=== PATIENT | female | born 1945 | race Caucasian/White ===

== ENCOUNTER 2020-09-04 11:56 | Emergency (ER) | payer OTHER ==
[~2020-09-04] VITALS: Ht 162.6 cm; Wt 99.8 kg
[2020-09-04 12:32] VITALS: BP 127/62
[2020-09-04] MEDS ORDERED: ACETAMINOPHEN/CODEINE#3 (300/30mg) TAB PO ONE (14:45)
[2020-09-04] MEDS ORDERED: KETOROLAC TROMETH 30 MG/ML 1ML VIAL IM ONE (14:45)
== END 2020-09-04 15:12 | disposition home or self-care (01) ==
LOC: ER 11:56
DX: M48.061 Spinal stenosis, lumbar region without neurogenic claudication (principal); M54.16 Radiculopathy, lumbar region; E11.9 Type 2 diabetes mellitus without complications; Z88.6 Allergy status to analgesic agent
CPT/HCPCS: 72131; 82962; 96372; 99284; J1885

== ENCOUNTER 2020-09-06 04:33 | Emergency (ER) | payer OTHER ==
[~2020-09-06] VITALS: Ht 162.6 cm; Wt 99.8 kg
[2020-09-06 04:52] VITALS: BP 172/83
[2020-09-06] MEDS ORDERED: ONDANSETRON ODT 4 MG TAB PO ONE (05:15)
[2020-09-06] MEDS ORDERED: GABAPENTIN 100 MG CAP PO ONE (05:15)
[2020-09-06] MEDS ORDERED: HYDROmorphone HCL 2 MG/ML VL IM ONE (05:15)
== END 2020-09-06 05:10 | disposition home or self-care (01) ==
LOC: ER 04:33
DX: M48.061 Spinal stenosis, lumbar region without neurogenic claudication (principal); M79.661 Pain in right lower leg; E11.9 Type 2 diabetes mellitus without complications; Z88.6 Allergy status to analgesic agent
CPT/HCPCS: 96372; 99283; J1170; Q0162

== ENCOUNTER 2020-09-09 09:35 | Emergency (ER) | payer OTHER ==
[~2020-09-09] VITALS: Ht 162.6 cm; Wt 99.8 kg
[2020-09-09 09:46] VITALS: BP 125/63
[2020-09-09] MEDS ORDERED: ONDANSETRON HCL 4 MG/2 ML VIAL IM ONE (10:15)
[2020-09-09] MEDS ORDERED: HYDROmorphone HCL 2 MG/ML VL IM ONE (10:15)
== END 2020-09-09 10:49 | disposition home or self-care (01) ==
LOC: ER 09:35
DX: M48.061 Spinal stenosis, lumbar region without neurogenic claudication (principal); E11.9 Type 2 diabetes mellitus without complications; I10 Essential (primary) hypertension
CPT/HCPCS: 96372; 99284; J1170; J2405

== ENCOUNTER 2021-06-20 17:35 | Inpatient (IN) | payer OTHER ==
[~2021-06-20] VITALS: Ht 162.6 cm; Wt 106.7 kg
[2021-06-20] MEDS ORDERED: ACETAMINOPHEN 500 MG TAB PO ONE (18:00)
[2021-06-20] MEDS ORDERED: ONDANSETRON HCL 4 MG/2 ML VIAL IV ONE (20:00)
[2021-06-20] MEDS ORDERED: MORPHINE SULFATE 4 MG/ML SYR/VIAL IV ONE (20:00)
[2021-06-20 20:23] LABS: Basophils # (auto) 0 10 ^3/uL (0-0.2); Basophils % (auto) 0.3 % (0.0-2.0); Eosinophils # (auto) 0 10 ^3/uL (0-0.8); Hematocrit 40.1 % (36.0-46.0); Hemoglobin 13.3 g/dL (12.2-16.2); Lymphocytes % (auto) 20.6 % (10.0-50.0); Mean Corpuscular Hemoglobin 30.6 pg (28.0-32.0); Mean Corpuscular Hgb Conc. 33.1 g/dL (32.0-36.0); Mean Corpuscular Volume 92.3 fL (80.0-100.0); Monocytes # (auto) 1.2 10 ^3/uL (0-1.3); Monocytes % (auto) 8.5 % (0.0-12.0); Neutrophils # (auto) 10.4 10 ^3/uL (1.6-8.6); Neutrophils % (auto) 70.6 % (37.0-80.0); Red Blood Cells 4.35 10^6/uL (4.0-5.20); Red Cell Distribution Width 13.8 % (11.8-14.3); White Blood Cell 14.7 10^3/uL (4.4-10.8)
[2021-06-20 20:38] LABS: Albumin 2.9 g/dL (3.4-5.0); Calcium 9.3 mg/dL (8.5-10.1)
[2021-06-20 20:41] LABS: BUN/Creatinine Ratio 18.1; Bilirubin, Total 0.7 mg/dL (0.2-1.0); Total Protein 7.2 g/dL (6.4-8.2)
[2021-06-20 20:46] LABS: Potassium 2.8 mmol/L (3.5-5.1)
[2021-06-20] MEDS ORDERED: POTASSIUM CHL 20MEQ/100ML 100 ML IV ONE (22:15)
[2021-06-21 01:54] LABS: Urine Bacteria FEW /hpf (None Seen); Urine Blood 1+ /uL (Negative); Urine Hyaline Cast MOD /lpf (0 - 2); Urine Mucus FEW (None Seen); Urine Specific Gravity 1.024 (1.001-1.035); Urine WBC 10 /hpf (0 - 5)
[2021-06-21] MEDS ORDERED: DEXTROSE (50%) 50ML SYRG IV PRN (02:30)
[2021-06-21] MEDS ORDERED: ONDANSETRON HCL 4 MG/2 ML VIAL IV PRN (02:30)
[2021-06-21] MEDS ORDERED: MORPHINE SULFATE 4 MG/ML SYR/VIAL IV PRN (02:30)
[2021-06-21] MEDS ORDERED: TEMAZEPAM 15 MG CAP PO PRN (02:30)
[2021-06-21] MEDS ORDERED: ACETAMINOPHEN 325 MG TAB PO PRN (02:30)
[2021-06-21 03:15] LABS: INR 2.95 (0.9-1.15); Partial Thromboplastin Time 45.5 sec (23.6-33.0)
[2021-06-21] MEDS: ACCU-CHEK COMFORT CURVE STRIP VI SCH ×3 (06:52→18:41)
[2021-06-21] MEDS: InsuLIN REG 1unit/0.01ml Soln (100units/ml) SC SCH ×3 (06:55→18:42)
[2021-06-21] MEDS: cefTRIAXone 1GM/50ML D5W 50 ML IV SCH ×2 (08:46→09:45)
[2021-06-21] MEDS: LOSARTAN POTASSIUM 50 MG TAB PO SCH (09:45)
[2021-06-21] MEDS: HCTZ 25 MG TAB PO SCH (09:45)
[2021-06-21] MEDS: NIFEdipine ER 30 MG TAB PO SCH (09:46)
[2021-06-21] MEDS: PANTOPRAZOLE 40 MG TAB PO SCH (09:46)
[2021-06-21] MEDS ORDERED: LORazepam 2MG/ML-1ML VIAL IV ONE (11:30)
[2021-06-21 11:58] LABS: Basophils # (auto) 0 10 ^3/uL (0-0.2); Basophils % (auto) 0.4 % (0.0-2.0); Eosinophils # (auto) 0 10 ^3/uL (0-0.8); Eosinophils % (auto) 0.4 % (0.0-7.0); Hematocrit 41.1 % (36.0-46.0); Hemoglobin 13.6 g/dL (12.2-16.2); Lymphocytes # (auto) 2.8 10 ^3/uL (0.4-5.4); Mean Corpuscular Hemoglobin 30.8 pg (28.0-32.0); Mean Corpuscular Hgb Conc. 33.2 g/dL (32.0-36.0); Mean Corpuscular Volume 92.7 fL (80.0-100.0); Monocytes # (auto) 0.9 10 ^3/uL (0-1.3); Monocytes % (auto) 8.5 % (0.0-12.0); Neutrophils # (auto) 7.1 10 ^3/uL (1.6-8.6); Neutrophils % (auto) 64.7 % (37.0-80.0); Red Blood Cells 4.43 10^6/uL (4.0-5.20); White Blood Cell 10.9 10^3/uL (4.4-10.8)
[2021-06-21] MEDS ORDERED: GOLYTELY 4L KIT PO ONE (12:15)
[2021-06-21 12:19] LABS: INR 2.56 (0.9-1.15)
[2021-06-21 13:47] LABS: Calcium 9.3 mg/dL (8.5-10.1); Magnesium 2.1 mg/dL (1.6-2.6)
[2021-06-21 13:49] LABS: BUN/Creatinine Ratio 16.3
[2021-06-21] MEDS ORDERED: NIFE1TAB30 PO (15:25)
[2021-06-21] MEDS ORDERED: SIMV-13 PO (15:25)
[2021-06-21] MEDS ORDERED: POTA-264 PO (15:25)
[2021-06-21] MEDS ORDERED: ALPR0.255 PO (15:25)
[2021-06-21] MEDS ORDERED: METO-159 PO (15:25)
[2021-06-21] MEDS ORDERED: INSUINJ37 SC (15:25)
[2021-06-21] MEDS ORDERED: WARF3TAB22 PO (15:25)
[2021-06-21] MEDS ORDERED: LOSA50TA27 PO (15:25)
[2021-06-21] MEDS ORDERED: PHYTONADIONE (VIT K)10 MG/ML 1ML VIAL SUBCUT ONE (16:15)
[2021-06-21] MEDS ORDERED: phytonadione 10 MG in SODIUM CHL 0.9% 50 ML IV ONE (17:00)
[2021-06-21] MEDS ORDERED: WARFARIN SODIUM 2.5 MG TAB PO ONE (17:00)
[2021-06-21 20:05] VITALS: BP 143/73
[2021-06-21] MEDS: ATORVASTATIN 20 MG TAB PO SCH (21:27)
[2021-06-22] MEDS: ACCU-CHEK COMFORT CURVE STRIP VI SCH ×5 (01:23→23:20)
[2021-06-22] MEDS: InsuLIN REG 1unit/0.01ml Soln (100units/ml) SC SCH ×5 (01:23→23:20)
[2021-06-22] MEDS: HYDROmorphone HCL 2 MG/ML VL IV PRN ×3 (01:34→18:47)
[2021-06-22] MEDS ORDERED: WARF4TAB33 PO (01:58)
[2021-06-22 05:00] VITALS: BP 141/70
[2021-06-22] MEDS ORDERED: PHYTONADIONE (VIT K)10 MG/ML 1ML VIAL SUBCUT ONE (05:00)
[2021-06-22] MEDS: MORPHINE SULFATE INJECTION 2 MG/ML SYRG IV PRN ×2 (05:23→12:36)
[2021-06-22 05:34] LABS: Basophils # (auto) 0 10 ^3/uL (0-0.2); Basophils % (auto) 0.3 % (0.0-2.0); Eosinophils # (auto) 0 10 ^3/uL (0-0.8); Eosinophils % (auto) 0.1 % (0.0-7.0); Hemoglobin 14.1 g/dL (12.2-16.2); Lymphocytes # (auto) 2.7 10 ^3/uL (0.4-5.4); Lymphocytes % (auto) 25.5 % (10.0-50.0); Mean Corpuscular Hgb Conc. 33.6 g/dL (32.0-36.0); Mean Corpuscular Volume 92.3 fL (80.0-100.0); Monocytes # (auto) 1.1 10 ^3/uL (0-1.3); Monocytes % (auto) 10.4 % (0.0-12.0); Neutrophils # (auto) 6.7 10 ^3/uL (1.6-8.6); Neutrophils % (auto) 63.7 % (37.0-80.0); Nucleated Red Blood Cells % 0.1 %; Red Blood Cells 4.55 10^6/uL (4.0-5.20); Red Cell Distribution Width 13.9 % (11.8-14.3); White Blood Cell 10.5 10^3/uL (4.4-10.8)
[2021-06-22] MEDS ORDERED: MAGNESIUM CITRATE SOLUTION 300 ML BTL PO ONE (06:00)
[2021-06-22] MEDS ORDERED: GOLYTELY 4L KIT PO ONE (06:00)
[2021-06-22 06:22] LABS: Calcium 9.3 mg/dL (8.5-10.1)
[2021-06-22 06:25] LABS: Albumin 3.2 g/dL (3.4-5.0); BUN/Creatinine Ratio 17.3
[2021-06-22 06:30] LABS: Bilirubin, Total 0.7 mg/dL (0.2-1.0)
[2021-06-22] MEDS ORDERED: phytonadione 10 MG in SODIUM CHL 0.9% 50 ML IV ONE (07:30)
[2021-06-22 09:00] VITALS: BP 125/67
[2021-06-22] MEDS ORDERED: PHYTONADIONE(VitK) ORAL Susp 10mg/10ml(1mg/ml) PO ONE (09:45)
[2021-06-22] MEDS: LOSARTAN POTASSIUM 50 MG TAB PO SCH (10:15)
[2021-06-22] MEDS: PANTOPRAZOLE 40 MG TAB PO SCH (10:16)
[2021-06-22] MEDS: NIFEdipine ER 30 MG TAB PO SCH (10:16)
[2021-06-22] MEDS: HCTZ 25 MG TAB PO SCH (10:16)
[2021-06-22 10:30] LABS: INR 1.22 (0.9-1.15)
[2021-06-22] MEDS ORDERED: SODIUM CHLORIDE LOCK 10 ML ONE (10:50)
[2021-06-22] MEDS: cefTRIAXone 1GM/50ML D5W 50 ML IV SCH (10:58)
[2021-06-22] MEDS: POTASSIUM CHL 20MEQ/100ML 100 ML IV SCH ×2 (10:59→15:13)
[2021-06-22 13:00] VITALS: BP 139/63
[2021-06-22] MEDS: MIDAZOLAM HCL 5 MG/ML-1ML VIAL ONE ×3 (17:08→17:14)
[2021-06-22] MEDS: fentaNYL CITRATE 100 MCG/2 ML VL ONE ×3 (17:08→17:14)
[2021-06-22] MEDS: diphenhdrAMINE HCL 50 MG/1 ML VL ONE ×2 (17:08→17:12)
[2021-06-22 18:38] VITALS: BP 137/65
[2021-06-22] MEDS: ATORVASTATIN 20 MG TAB PO SCH (21:36)
[2021-06-22 22:00] VITALS: BP 132/50
[2021-06-23] MEDS: HYDROmorphone HCL 2 MG/ML VL IV PRN ×3 (01:00→16:23)
[2021-06-23] MEDS: MORPHINE SULFATE INJECTION 2 MG/ML SYRG IV PRN ×2 (04:54→20:43)
[2021-06-23 05:00] VITALS: BP 129/56
[2021-06-23] MEDS: InsuLIN REG 1unit/0.01ml Soln (100units/ml) SC SCH ×3 (05:59→18:16)
[2021-06-23] MEDS: ACCU-CHEK COMFORT CURVE STRIP VI SCH ×3 (06:01→17:23)
[2021-06-23 06:56] LABS: BUN/Creatinine Ratio 14.3; Calcium 8.9 mg/dL (8.5-10.1)
[2021-06-23] MEDS: cefTRIAXone 1GM/50ML D5W 50 ML IV SCH (08:59)
[2021-06-23] MEDS: LOSARTAN POTASSIUM 50 MG TAB PO SCH (09:04)
[2021-06-23] MEDS: HCTZ 25 MG TAB PO SCH (09:05)
[2021-06-23] MEDS: NIFEdipine ER 30 MG TAB PO SCH (09:06)
[2021-06-23 09:28] VITALS: BP 144/71
[2021-06-23] MEDS ORDERED: ENOXAPARIN SOD 100 MG/1 ML SYRINGE SC SCH (10:00)
[2021-06-23 10:48] LABS: Potassium 2.7 mmol/L (3.5-5.1)
[2021-06-23] MEDS ORDERED: ENO100SY SC (11:07)
[2021-06-23] MEDS ORDERED: CEPH500T PO (11:07)
[2021-06-23 12:35] VITALS: BP 150/67
[2021-06-23 16:53] VITALS: BP 160/60
[2021-06-23] MEDS: POTASSIUM EFFERVESENT TAB 25 MEQ PO SCH (17:30)
[2021-06-23 20:31] LABS: BUN/Creatinine Ratio 10.2; Calcium 8.8 mg/dL (8.5-10.1); Potassium 3.2 mmol/L (3.5-5.1)
[2021-06-23 21:05] VITALS: BP 161/71
[2021-06-23 22:00] VITALS: BP 161/71
[2021-06-23] MEDS ORDERED: ENOXAPARIN SOD 120 MG/0.8 ML SYRINGE SC SCH (22:00)
[2021-06-23] MEDS ORDERED: LOPERAMIDE HCL 2 MG CAP PO ONE (22:00)
[2021-06-23] MEDS: ATORVASTATIN 20 MG TAB PO SCH (22:29)
== END 2021-06-23 23:16 | disposition home or self-care (01) | DRG 375 ==
LOC: ER 17:35 → OVERFLOW 06-21 02:27 → WEST WING 06-21 20:02
PROVIDERS: ADMIT Nurse Practitioner; ATTEND Internal Medicine
PROC: 0DBL8ZZ Excision of Transverse Colon, Via Natural or Artificial Opening Endoscopic (ICD-10-PCS; 2021-06-22)
PROC: 0DBL8ZX Excision of Transverse Colon, Via Natural or Artificial Opening Endoscopic, Diagnostic (ICD-10-PCS; principal; 2021-06-22 17:04)
DX: C18.4 Malignant neoplasm of transverse colon (principal); D68.9 Coagulation defect, unspecified; N39.0 Urinary tract infection, site not specified; Z68.41 Body mass index [BMI] 40.0-44.9, adult; Z20.822 Contact with and (suspected) exposure to COVID-19; K63.89 Other specified diseases of intestine; E11.9 Type 2 diabetes mellitus without complications; E87.6 Hypokalemia; I10 Essential (primary) hypertension; K58.0 Irritable bowel syndrome with diarrhea; E66.9 Obesity, unspecified; E78.5 Hyperlipidemia, unspecified; N20.0 Calculus of kidney; K64.8 Other hemorrhoids; K63.5 Polyp of colon; Z79.01 Long term (current) use of anticoagulants; Z83.3 Family history of diabetes mellitus; Z86.711 Personal history of pulmonary embolism; Z90.49 Acquired absence of other specified parts of digestive tract; Z90.710 Acquired absence of both cervix and uterus; Z88.5 Allergy status to narcotic agent; Z88.8 Allergy status to other drugs, medicaments and biological substances; Z88.2 Allergy status to sulfonamides; Z79.84 Long term (current) use of oral hypoglycemic drugs
CPT/HCPCS: 36415; 45380; 45385; 71045; 74176; 74181; 80048; 80053; 81001; 82962; 83605; 83690; 83735; 85025; 85610; 85730; 87040; 87081; 87426; 93005; 96365; 96366; 96367; 96372; G0378; J0696; J1815; J2250; J3430; J3480

== ENCOUNTER 2021-07-14 09:50 | Emergency (ER) | payer OTHER ==
[~2021-07-14] VITALS: Ht 162.6 cm; Wt 100.7 kg
[~2021-07-14 09:50] MED LIST: ALPR0.255 PO; CEPH500T PO; ENO100SY SC; INSUINJ37 SC; LOSA50TA27 PO; METO-159 PO; NIFE1TAB30 PO; POTA-264 PO; SIMV-13 PO; WARF3TAB22 PO; WARF4TAB33 PO
[2021-07-14 10:32] LABS: Basophils # (auto) 0.1 10 ^3/uL (0-0.2); Basophils % (auto) 0.9 % (0.0-2.0); Eosinophils # (auto) 0.1 10 ^3/uL (0-0.8); Eosinophils % (auto) 0.9 % (0.0-7.0); Hematocrit 45.1 % (36.0-46.0); Hemoglobin 14.9 g/dL (12.2-16.2); Lymphocytes # (auto) 2.3 10 ^3/uL (0.4-5.4); Lymphocytes % (auto) 36.6 % (10.0-50.0); Mean Corpuscular Hemoglobin 30.8 pg (28.0-32.0); Mean Corpuscular Hgb Conc. 33.1 g/dL (32.0-36.0); Mean Corpuscular Volume 92.8 fL (80.0-100.0); Monocytes # (auto) 0.8 10 ^3/uL (0-1.3); Monocytes % (auto) 12.5 % (0.0-12.0); Neutrophils # (auto) 3.1 10 ^3/uL (1.6-8.6); Neutrophils % (auto) 49.1 % (37.0-80.0); Nucleated Red Blood Cells % 0.1 %; Red Blood Cells 4.85 10^6/uL (4.0-5.20); Red Cell Distribution Width 14.5 % (11.8-14.3); White Blood Cell 6.2 10^3/uL (4.4-10.8)
[2021-07-14 10:55] LABS: Calcium 10.1 mg/dL (8.5-10.1); Chloride 100 mmol/L (98-107); Potassium 3.7 mmol/L (3.5-5.1); Sodium 136 mmol/L (136-145)
[2021-07-14 11:03] LABS: Alanine Aminotransferase 43 U/L (13-56); Albumin 3.7 g/dL (3.4-5.0); Alkaline Phosphatase 73 U/L (45-117); Anion Gap 5 (5-15); Aspartate Aminotransferase 29 U/L (15-37); BUN/Creatinine Ratio 15.3; Bilirubin, Total 0.6 mg/dL (0.2-1.0); Blood Urea Nitrogen 15 mg/dL (7-18); Carbon Dioxide 31 mmol/L (21-32); GFR African American 71 mL/min; GFR Non-African American 58 mL/min; Glucose 219 mg/dL (74-106); Total Protein 8.2 g/dL (6.4-8.2)
[2021-07-14 11:45] LABS: INR 1.72 (0.9-1.15); Partial Thromboplastin Time 28.4 sec (23.6-33.0)
[2021-07-14 15:37] LABS: Urine Bacteria FEW /hpf (None Seen); Urine Blood Negative /uL (Negative); Urine Hyaline Cast FEW /lpf (0 - 2); Urine Mucus FEW (None Seen); Urine Specific Gravity 1.018 (1.001-1.035); Urine WBC 4 /hpf (0 - 5)
[2021-07-14 19:10] VITALS: BP 120/83
== END 2021-07-14 19:16 | disposition home or self-care (01) ==
LOC: ER 09:50
DX: R10.9 Unspecified abdominal pain (principal); R11.2 Nausea with vomiting, unspecified; R19.7 Diarrhea, unspecified; I10 Essential (primary) hypertension; E11.9 Type 2 diabetes mellitus without complications; Z90.49 Acquired absence of other specified parts of digestive tract; Z90.710 Acquired absence of both cervix and uterus; Z79.4 Long term (current) use of insulin; Z79.01 Long term (current) use of anticoagulants; Z79.899 Other long term (current) drug therapy; Z88.2 Allergy status to sulfonamides; Z88.8 Allergy status to other drugs, medicaments and biological substances
CPT/HCPCS: 36415; 74176; 80053; 81001; 83690; 84484; 85025; 85610; 85730; 93005

== ENCOUNTER 2023-03-11 10:56 | Inpatient (IN) | payer OTHER ==
[~2023-03-11] VITALS: Ht 162.6 cm; Wt 105.3 kg
[~2023-03-11 10:56] MED LIST changes: +CIPR500T4 PO; -SIMV-13 PO; +SIMV40TA18 PO; +WARF-111 PO; +WARF-112 PO; -WARF3TAB22 PO; -WARF4TAB33 PO
[2023-03-11] MEDS ORDERED: SODIUM CHLORIDE 0.9% 1,000 ML IV ONE (12:15)
[2023-03-11 12:58] LABS: Basophils # (auto) 0 10 ^3/uL (0-0.2); Basophils % (auto) 0.7 % (0.0-2.0); Eosinophils # (auto) 0 10 ^3/uL (0-0.8); Eosinophils % (auto) 0.7 % (0.0-7.0); Hematocrit 40.5 % (36.0-46.0); Hemoglobin 13.6 g/dL (12.2-16.2); Lymphocytes # (auto) 2.4 10 ^3/uL (0.4-5.4); Lymphocytes % (auto) 39.3 % (10.0-50.0); Mean Corpuscular Hemoglobin 31.9 pg (28.0-32.0); Mean Corpuscular Hgb Conc. 33.7 g/dL (32.0-36.0); Mean Corpuscular Volume 94.8 fL (80.0-100.0); Monocytes # (auto) 0.7 10 ^3/uL (0-1.3); Monocytes % (auto) 11.2 % (0.0-12.0); Neutrophils # (auto) 2.9 10 ^3/uL (1.6-8.6); Neutrophils % (auto) 48.1 % (37.0-80.0); Nucleated Red Blood Cells % 0.2 %; Red Blood Cells 4.27 10^6/uL (4.0-5.20); Red Cell Distribution Width 13.8 % (11.8-14.3); White Blood Cell 6.1 10^3/uL (4.4-10.8)
[2023-03-11 13:09] LABS: Albumin 3.4 g/dL (3.4-5.0); Calcium 8.9 mg/dL (8.5-10.1); Potassium 3.8 mmol/L (3.5-5.1)
[2023-03-11 13:14] LABS: BUN/Creatinine Ratio 17.4 (10.0-20.0); Bilirubin, Total 0.4 mg/dL (0.2-1.0); Total Protein 6.8 g/dL (6.4-8.2)
[2023-03-11 13:23] LABS: INR 2.62 (0.9-1.15)
[2023-03-11 14:10] LABS: Urine Bacteria FEW /hpf (None Seen); Urine Blood Negative /uL (Negative); Urine Mucus FEW (None Seen); Urine Specific Gravity 1.012 (1.001-1.035); Urine WBC 29 /hpf (0 - 5)
[2023-03-11] MEDS ORDERED: NITROGLYCERIN 0.4 MG SL TAB SL PRN (16:30)
[2023-03-11] MEDS ORDERED: DEXTROSE (50%) 50ML SYRG IV PRN (16:30)
[2023-03-11] MEDS ORDERED: DOCUSATE SOD 100 MG CAP PO PRN (16:30)
[2023-03-11] MEDS ORDERED: ONDANSETRON HCL 4 MG/2 ML VIAL IV PRN (16:30)
[2023-03-11] MEDS ORDERED: MORPHINE SULFATE INJ 2 MG/ml SYRG IV PRN ×2 (16:30)
[2023-03-11] MEDS: ACCU-CHEK COMFORT CURVE STRIP VI SCH ×2 (17:00→22:59)
[2023-03-11] MEDS: InsuLIN REG 1unit/0.01ml Soln (100units/ml) SC SCH (18:03)
[2023-03-11] MEDS ORDERED: InsuLIN REG 1unit/0.01ml Soln (100units/ml) SC SCH (22:00)
[2023-03-11] MEDS: ACETAMINOPHEN 325 MG TAB PO PRN (23:03)
[2023-03-11] MEDS ORDERED: LOPERAMIDE HCL 2 MG CAP/TAB PO ONE (23:15)
[2023-03-12] MEDS: ACCU-CHEK COMFORT CURVE STRIP VI SCH ×4 (06:30→21:37)
[2023-03-12] MEDS: ACETAMINOPHEN 325 MG TAB PO PRN ×2 (06:34→23:04)
[2023-03-12] MEDS: InsuLIN REG 1unit/0.01ml Soln (100units/ml) SC SCH ×3 (06:39→18:16)
[2023-03-12] MEDS: LOPERAMIDE HCL 2 MG CAP/TAB PO PRN ×2 (10:54→15:20)
[2023-03-12] MEDS ORDERED: InsuLIN REG 1unit/0.01ml Soln (100units/ml) ONE (12:11)
[2023-03-12 12:17] LABS: INR 1.96 (0.9-1.15)
[2023-03-12 13:23] LABS: Cholesterol 149 mg/dL (< 200)
[2023-03-12 13:26] LABS: HDL Cholesterol 51 mg/dL (40-59); LDL Cholesterol 69 mg/dL (< 100); Triglycerides 160 mg/dL (< 150)
[2023-03-12] MEDS: hydrALAZINE HCL 20 MG/ML VL IV PRN ×2 (14:06→23:08)
[2023-03-12 15:20] VITALS: BP 167/65
[2023-03-12 17:00] VITALS: BP 167/65
[2023-03-12] MEDS ORDERED: WARFARIN SODIUM 1 MG TAB PO ONE (17:00)
[2023-03-12] MEDS ORDERED: WARFARIN SODIUM 3 MG PO SCH (18:00)
[2023-03-12] MEDS ORDERED: MET50T PO (18:36)
[2023-03-12] MEDS ORDERED: MORPHINE SULFATE INJ 2 MG/ml SYRG IV PRN (19:15)
[2023-03-12] MEDS: ALPRAZolam 0.25 MG TAB PO SCH (21:31)
[2023-03-12] MEDS: NIFEdipine ER 30 MG TAB PO SCH (21:33)
[2023-03-12 22:00] VITALS: BP 175/63
[2023-03-12] MEDS ORDERED: ATORVASTATIN 20 MG TAB PO SCH (22:00)
[2023-03-12] MEDS ORDERED: InsuLIN REG 1unit/0.01ml Soln (100units/ml) SC SCH (22:00)
[2023-03-13 00:08] VITALS: BP 131/57
[2023-03-13 05:00] VITALS: BP 149/54
[2023-03-13] MEDS: ACETAMINOPHEN 325 MG TAB PO PRN ×2 (05:00→12:19)
[2023-03-13] MEDS: ACCU-CHEK COMFORT CURVE STRIP VI SCH ×2 (06:12→12:19)
[2023-03-13] MEDS: InsuLIN REG 1unit/0.01ml Soln (100units/ml) SC SCH ×2 (06:44→12:25)
[2023-03-13] MEDS ORDERED: InsuLIN REG 1unit/0.01ml Soln (100units/ml) SC SCH (07:00)
[2023-03-13 07:09] LABS: INR 1.63 (0.9-1.15)
[2023-03-13 09:00] VITALS: BP 142/66
[2023-03-13] MEDS ORDERED: Losartan Potassium & Hydrochlo (Hyzaar) 1 TAB PO SCH (10:00)
[2023-03-13] MEDS: NIFEdipine ER 30 MG TAB PO SCH (10:24)
[2023-03-13] MEDS: ALPRAZolam 0.25 MG TAB PO SCH (10:24)
[2023-03-13] MEDS: LOPERAMIDE HCL 2 MG CAP/TAB PO PRN (10:28)
[2023-03-13 13:00] VITALS: BP 136/72
[2023-03-13] MEDS ORDERED: WARFARIN SODIUM 2 MG TAB PO ONE (17:00)
== END 2023-03-13 16:15 | disposition home health service (06) | DRG 312 ==
LOC: EDBD 10:56 → ER 10:56 → UNDOADMIN 16:28 → TELE 16:28 → TELE-WESTW 03-12 15:38 → OBSVTOIN 03-13 09:38
PROVIDERS: ADMIT Internal Medicine; ATTEND Internal Medicine
DX: R55 Syncope and collapse (principal); E11.9 Type 2 diabetes mellitus without complications; E78.5 Hyperlipidemia, unspecified; I11.0 Hypertensive heart disease with heart failure; I48.91 Unspecified atrial fibrillation; I50.9 Heart failure, unspecified; E66.9 Obesity, unspecified; Z68.39 Body mass index [BMI] 39.0-39.9, adult; Z88.2 Allergy status to sulfonamides; Z86.711 Personal history of pulmonary embolism; Z83.2 Family history of diseases of the blood and blood-forming organs and certain disorders involving the immune mechanism; Z79.4 Long term (current) use of insulin; Z79.01 Long term (current) use of anticoagulants; Z83.3 Family history of diabetes mellitus; Z88.8 Allergy status to other drugs, medicaments and biological substances; Z90.49 Acquired absence of other specified parts of digestive tract
CPT/HCPCS: 36415; 71045; 80053; 80061; 81001; 82962; 83036; 83690; 84443; 84484; 85025; 85610; 87081; 93005; 93306; 96360; 97110; 97116; 97163; G0378; J1815

== ENCOUNTER 2023-06-12 14:10 | Inpatient (IN) | payer OTHER ==
[~2023-06-12] VITALS: Ht 162.6 cm; Wt 106.5 kg
[~2023-06-12 14:10] MED LIST changes: -CEPH500T PO; -CIPR500T4 PO; -ENO100SY SC; +MET50T PO; -METO-159 PO
[2023-06-12 14:56] LABS: Basophils # (auto) 0 10 ^3/uL (0-0.2); Basophils % (auto) 0.7 % (0.0-2.0); Eosinophils # (auto) 0.1 10 ^3/uL (0-0.8); Eosinophils % (auto) 0.9 % (0.0-7.0); Hematocrit 39.8 % (36.0-46.0); Hemoglobin 13.4 g/dL (12.2-16.2); Lymphocytes # (auto) 2.8 10 ^3/uL (0.4-5.4); Lymphocytes % (auto) 38.4 % (10.0-50.0); Mean Corpuscular Hemoglobin 31.9 pg (28.0-32.0); Mean Corpuscular Hgb Conc. 33.6 g/dL (32.0-36.0); Mean Corpuscular Volume 95.1 fL (80.0-100.0); Monocytes # (auto) 0.8 10 ^3/uL (0-1.3); Monocytes % (auto) 10.6 % (0.0-12.0); Neutrophils # (auto) 3.5 10 ^3/uL (1.6-8.6); Neutrophils % (auto) 49.4 % (37.0-80.0); Nucleated Red Blood Cells % 0.1 %; Red Blood Cells 4.18 10^6/uL (4.0-5.20); Red Cell Distribution Width 13.6 % (11.8-14.3); White Blood Cell 7.2 10^3/uL (4.4-10.8)
[2023-06-12 15:04] VITALS: PULSE 75; RESP 19; O2SAT 94
[2023-06-12 15:27] LABS: INR 2.73 (0.9-1.15); Partial Thromboplastin Time 35.3 SEC (24.5-34.5); Prothrombin Time 26.8 sec (9.3-11.8)
[2023-06-12 15:28] LABS: Alanine Aminotransferase 44 U/L (7-40); Albumin 3.8 g/dL (3.2-4.8); Alkaline Phosphatase 109 U/L (46-116); Anion Gap 7.5 (5-15); Aspartate Aminotransferase 28 U/L (13-40); BUN/Creatinine Ratio 16.8 (10.0-20.0); Blood Urea Nitrogen 18 mg/dL (9-23); Calcium 9.4 mg/dL (8.5-10.1); Carbon Dioxide 30.5 mmol/L (20-30); Chloride 100 mmol/L (98-107); Glucose 332 mg/dL (74-106); Magnesium 1.4 mg/dL (1.6-2.6); Potassium 3.6 mmol/L (3.5-5.1); Sodium 138 mmol/L (136-145)
[2023-06-12 15:29] LABS: Bilirubin, Total 0.4 mg/dL (0.2-1.0); Total Protein 6.7 g/dL (5.7-8.2)
[2023-06-12] MEDS ORDERED: MAGNESIUM SULFATE 1GM/100ML 100 ML IV ONE (16:15)
[2023-06-12 16:31] LABS: Urine Bacteria FEW /hpf (None Seen); Urine Blood Negative /uL (Negative); Urine Clarity Clear (Clear); Urine Color Colorless (Yellow); Urine Mucus FEW (None Seen); Urine Protein, UAD 1+ (Negative); Urine Specific Gravity 1.017 (1.001-1.035); Urine Urobilinogen Normal (Negative); Urine WBC 7 /hpf (0 - 5); Urine pH 7.5 (5.0-8.0)
[2023-06-12 16:46] LABS: Lactic Acid w/Reflex 2.5 mmol/L (0.4-2.0)
[2023-06-12 19:26] VITALS: PULSE 71; RESP 23; O2SAT 95
[2023-06-12] MEDS ORDERED: cefTRIAXone 1GM/50ML D5W 50 ML IV ONE (22:30)
[2023-06-12] MEDS ORDERED: FUROSEMIDE 40 MG/4 ML VIAL IV ONE (22:30)
[2023-06-12] MEDS ORDERED: ACETAMINOPHEN 325 MG TAB PO PRN (23:00)
[2023-06-12] MEDS ORDERED: hydrALAZINE HCL 20 MG/ML VL IV PRN (23:00)
[2023-06-12] MEDS ORDERED: ONDANSETRON HCL 4 MG/2 ML VIAL IV PRN (23:00)
[2023-06-12] MEDS ORDERED: DOCUSATE SOD 100 MG CAP PO PRN (23:00)
[2023-06-12] MEDS ORDERED: MORPHINE SULFATE INJ 2 MG/ml SYRG IV PRN (23:00)
[2023-06-12] MEDS ORDERED: DEXTROSE (50%) 50ML SYRG IV PRN (23:00)
[2023-06-12] MEDS ORDERED: NITROGLYCERIN 0.4 MG SL TAB SL PRN (23:00)
[2023-06-13 05:49] LABS: Basophils # (auto) 0 10 ^3/uL (0-0.2); Basophils % (auto) 0.6 % (0.0-2.0); Eosinophils # (auto) 0.1 10 ^3/uL (0-0.8); Hematocrit 37.3 % (36.0-46.0); Lymphocytes # (auto) 2.5 10 ^3/uL (0.4-5.4); Lymphocytes % (auto) 35.2 % (10.0-50.0); Mean Corpuscular Hemoglobin 32.7 pg (28.0-32.0); Mean Corpuscular Hgb Conc. 34.8 g/dL (32.0-36.0); Mean Corpuscular Volume 94.1 fL (80.0-100.0); Monocytes # (auto) 0.9 10 ^3/uL (0-1.3); Monocytes % (auto) 12.7 % (0.0-12.0); Neutrophils # (auto) 3.6 10 ^3/uL (1.6-8.6); Neutrophils % (auto) 50.5 % (37.0-80.0); Red Blood Cells 3.97 10^6/uL (4.0-5.20); Red Cell Distribution Width 13.5 % (11.8-14.3); White Blood Cell 7.2 10^3/uL (4.4-10.8)
[2023-06-13 06:06] LABS: Anion Gap 5.6 (5-15); Carbon Dioxide 33.4 mmol/L (20-30); Chloride 99 mmol/L (98-107); Potassium 3.4 mmol/L (3.5-5.1); Sodium 138 mmol/L (136-145)
[2023-06-13 06:07] LABS: Calcium 9.8 mg/dL (8.7-10.4)
[2023-06-13 06:12] LABS: BUN/Creatinine Ratio 17.5 (10.0-20.0); Blood Urea Nitrogen 14 mg/dL (9-23); Glucose 185 mg/dL (74-106)
[2023-06-13 06:13] LABS: Magnesium 1.5 mg/dL (1.6-2.6)
[2023-06-13] MEDS: ACCU-CHEK COMFORT CURVE STRIP VI SCH ×3 (06:57→17:00)
[2023-06-13] MEDS: InsuLIN REG 1unit/0.01ml Soln (100units/ml) SC SCH ×3 (07:10→17:00)
[2023-06-13 08:55] VITALS: BP 137/56; PULSE 71; RESP 19; TEMP 97.6; O2SAT 95
[2023-06-13 09:22] VITALS: RESP 18; O2SAT 98
[2023-06-13 09:45] LABS: INR 2.15 (0.9-1.15); Partial Thromboplastin Time 34.5 SEC (24.5-34.5); Prothrombin Time 21.5 sec (9.3-11.8)
[2023-06-13] MEDS ORDERED: NIFE1TAB31 PO (10:20)
[2023-06-13] MEDS ORDERED: LOSA100T33 PO (10:20)
[2023-06-13] MEDS ORDERED: WARF-111 PO (10:20)
[2023-06-13] MEDS ORDERED: LOPELIQ6 PO (10:20)
[2023-06-13] MEDS ORDERED: ALPR0.254 PO (10:20)
[2023-06-13] MEDS ORDERED: ACET-1304 PO (10:21)
[2023-06-13 13:06] VITALS: BP 146/47; PULSE 63; RESP 19; TEMP 98.5; O2SAT 100
[2023-06-13] MEDS ORDERED: MAGNESIUM SULFATE 1GM/100ML 100 ML IV SCH (16:00)
[2023-06-13] MEDS ORDERED: POTASSIUM EFFERVESENT TAB 25 MEQ PO ONE (16:00)
[2023-06-13] MEDS ORDERED: MAGNESIUM OXIDE 400 MG TAB PO ONE (16:00)
[2023-06-13 16:17] VITALS: BP 149/61; PULSE 70; RESP 19; TEMP 98.2; O2SAT 95
[2023-06-13] MEDS ORDERED: WARFARIN SODIUM 1 MG TAB PO ONE (17:00)
[2023-06-13] MEDS ORDERED: cefTRIAXone 1GM/50ML D5W 50 ML IV SCH (22:00)
[2023-06-13] MEDS ORDERED: METOPROLOL TARTRATE 50 MG TAB PO SCH (22:00)
== END 2023-06-13 18:27 | disposition home or self-care (01) | DRG 291 ==
LOC: EDBD 14:10 → ER 14:10 → TELE 23:12 → TELE-WESTW 06-13 08:24
PROVIDERS: ADMIT Nurse Practitioner Family; ATTEND Internal Medicine
DX: I11.0 Hypertensive heart disease with heart failure (principal); I50.31 Acute diastolic (congestive) heart failure; I48.20 Chronic atrial fibrillation, unspecified; D68.9 Coagulation defect, unspecified; N39.0 Urinary tract infection, site not specified; E11.65 Type 2 diabetes mellitus with hyperglycemia; E83.42 Hypomagnesemia; I25.10 Atherosclerotic heart disease of native coronary artery without angina pectoris; F41.9 Anxiety disorder, unspecified; Z79.01 Long term (current) use of anticoagulants; Z79.4 Long term (current) use of insulin; Z83.2 Family history of diseases of the blood and blood-forming organs and certain disorders involving the immune mechanism; Z83.3 Family history of diabetes mellitus; Z86.711 Personal history of pulmonary embolism; R00.0 Tachycardia, unspecified; Z88.5 Allergy status to narcotic agent; Z88.2 Allergy status to sulfonamides; Z88.8 Allergy status to other drugs, medicaments and biological substances
CPT/HCPCS: 36415; 71045; 80048; 80053; 81001; 82962; 83605; 83735; 83880; 84484; 85025; 85610; 85730; 93005; G0378; J0696; J1815

== ENCOUNTER 2025-02-12 05:15 | Emergency (ER) | payer OTHER ==
[~2025-02-12] VITALS: Ht 165.1 cm; Wt 109.1 kg
[~2025-02-12 05:15] MED LIST changes: +ACET-1304 PO; +ALPR0.254 PO; -ALPR0.255 PO; +LOPELIQ6 PO; +LOSA100T33 PO; -LOSA50TA27 PO; -NIFE1TAB30 PO; +NIFE1TAB31 PO; -WARF-112 PO
[2025-02-12 05:20] VITALS: BP 171/87; PULSE 74; RESP 18; TEMP 98.2; O2SAT 98
[2025-02-12] MEDS ORDERED: METOPROLOL TARTRATE 25 MG TAB PO ONE (05:30)
[2025-02-12] MEDS ORDERED: IOHEXOL 300 MG/ML 100ML BOTTLE IJ ONE (09:57)
[2025-02-12] MEDS ORDERED: TAMS-35 PO (12:29)
[2025-02-12] MEDS ORDERED: CIPR-173 PO (12:29)
== END 2025-02-12 05:29 | disposition left against medical advice (07) ==
LOC: ER 05:15 → EDBD 05:15 → MERGE 05:15 → ER 05:29
DX: M54.9 Dorsalgia, unspecified (principal); Z53.21 Procedure and treatment not carried out due to patient leaving prior to being seen by health care provider

== ENCOUNTER 2025-02-12 05:38 | Emergency (ER) | payer OTHER ==
[~2025-02-12] VITALS: Ht 165.1 cm; Wt 109.1 kg
--- NOTE | 2025-02-12 08:15 | ED.PDOC ---
Back pain HPI HPI Comments A 79 year old female with PMHx Chronic Back Pain, DM insulin dependent, Arthritis, HTN, CHF, COPD presents to the ED c/o atraumatic back/flank pain onset 3 days. Patient states that her pain is localized to her right flank/back area, nonradiating, describes as sharp, and rates her pain a 10/10. Patient mentions that she did not fall and that she suffers from chronic back pain. Patient reports that the pain is made worse with lateral movements. Patient reports that she took a Tylenol with Codeine at home around 04:00 this morning and states that it provided some relief. Denies fever, SOB, chest pain, abdominal pain, nausea, vomiting, diarrhea, headache, dizziness, vision changes, or numbness/tingling of extremities. No other symptoms or modifying factors reported at this time. Patient is alert and oriented x4 and has a stable gait. Chief Complaint: Back Pain Time Seen by MD: 07:51 Primary Care Provider: YAHAIRA Morris Notes: Nurses Notes, Medications, Allergies Allergies: Coded Allergies: Hydrocodone (Verified Allergy, Unknown, 03/11/23) Metformin (Verified Allergy, Unknown, 03/11/23) Sulfa Antibiotics (Verified Allergy, Unknown, 03/11/23) Home Meds Active Scripts Ciprofloxacin Hcl (Cipro) 500 Mg Tab, 1 TAB PO BID, #14 TAB Prov:IMELDA GUERRERO NP 02/12/25 Tamsulosin Hcl (Flomax) 0.4 Mg Cap, 1 CAP PO DAILY for 10 Days, #10 CAP 0 Refills Prov:IMELDA GUERRERO NP 02/12/25 Metoprolol Tartrate (LOPRESSOR TABLET) 50 Mg Tb, 1 TAB PO BID, #60 TAB 5 Refills Prov:GARFIELD TAI MD 03/12/23 Reported Medications Acetaminophen (Tylenol Extra Strength) 500 Mg Tab, 500 MG PO PRN, #2 TAB 06/13/23 Loperamide HCl (Imodium A-D) 1 Mg/7.5 Ml Liq, 1 MG PO DAILY, LIQ 06/13/23 Warfarin Sodium (Warfarin Sodium) 3 Mg Tab, 1.5 MG PO Q SUNDAY, TAB 06/13/23 Nifedipine (Nifedipine Er) 30 Mg Tab, 1 TAB PO DAILY, #90 TAB 1 Refill 06/13/23 Losartan Potassium & Hydrochlo (Losartan Potassium/Hydroc) 1 Tab Tab, 1 TAB PO DAILY@DINNER, #30 TAB 5 Refills 06/13/23 Alprazolam (Alprazolam) 0.25 Mg Tab, 0.25 MG PO BIDPRN PRN for ANXIETY, TAB 06/13/23 Simvastatin (Simvastatin) 40 Mg Tab, 40 MG PO HS 06/21/21 Potassium Chloride (K-Tabs) 10 Meq Tab, 10 MEQ PO DAILY 06/21/21 Warfarin Sodium (Warfarin Sodium) 3 Mg Tab, 3 MG PO QPM 06/21/21 Insulin Glargine (Lantus Solostar) 100 Unit/Ml Inj, 75 UNIT SC HS 06/21/21 Information Source: Patient Mode of Arrival: EMS Timing: Days Duration: Since onset Location of Back pain: (R) Flank Severity: Moderate Prehospital treatment: Raspberry Checker, Treatment (Tylenol with Codeine) Quality: Sharp Onset: Bending, Twisting Circumstance: Other History of: Chronic Back Pain, Arthritis Modifying Factors: Movement, Twisting Associated signs and symptoms: None Past Medical History PAST MEDICAL HISTORY: Arthritis, CHF, DM, HTN, PE Surgical History: Appendectomy, Cholecystectomy, Hernia Repair, Hysterectomy PATIENT SERVICES ASSISTANT History: Denies all PATIENT SERVICES ASSISTANT Hx Family History Family History: Family hx of DM, Family hx of heart liborio Family History (Other): blood clots Social History Smoker: Non-Smoker Alcohol: Occasionally Drugs: Denies Drug Use Lives In: Home Constitutional: denies: chills, diaphoresis, fatigue, fever, malaise, sweats, weakness, others EENTM: denies: blurred vision, double vision, ear bleeding, ear discharge, ear drainage, ear pain, ear ringing, eye pain, eye redness, hearing loss, mouth pain, mouth swelling, nasal discharge, nose bleeding, nose congestion, nose pain, photophobia, tearing, throat pain, throat swelling, voice changes, others Respiratory: denies: cough, hemoptysis, orthopnea, SOB at rest, shortness of breath, SOB with excertion, stridor, wheezing, others Cardiovascular: denies: chest pain, dizzy spells, diaphoresis, Dyspnea on exertion, edema, irregular heart beat, left arm pain, lightheadedness, palpitations, PND, syncope, others Gastrointestinal: denies: abdomen distended, abdominal pain, blood streaked bowels, constipated, diarrhea, dysphagia, difficulty swallowing, hematemesis, melena, nausea, poor appetite, poor fluid intake, rectal bleeding, rectal pain, vomiting, others Genitourinary: reports: flank pain; denies: abnormal vagina bleeding, burning, dyspareunia, dysuria, frequency, hematuria, incontinence, pain, , vagina discharge, urgency, others Neurological: denies: dizziness, fainting, headache, left sided numbness, left sided weakness, numbness, paresthesia, pre-existing deficit, right sided numbness, right sided weakness, seizure, speech problems, tingling, tremors, weakness, others Musculoskeletal: reports: back pain; denies: gout, joint pain, joint swelling, muscle pain, muscle stiffness, neck pain, others Integumetry: denies: bruises, change in color, change in hair/nails, dryness, laceration, lesions, lumps, rash, wounds, others Allergic/Immunocompromised: denies: Difficulty Healing, Frequent Infections, Hives, Itching, others Hematologic/Lymphatic: denies: anemia, blood clots, easy bleeding, easy bruising, swollen glands, others Endocrine: denies: excessive hunger, excessive sweating, excessive thirst, excessive urination, flushing, intolerance to cold, intolerance to heat, unexplained weight gain, unexplained weight loss, others Psychiatric: denies: anxiety, bipolar disorder, depression, hopeless, panic disorder, schizophrenia, sleepless, suicidal, others All Other Systems: Reviewed and Negative Physical Exam General Appearance: Moderate Distress, Obese HEENT: NOT DONE Neck: NOT DONE Respiratory: Chest Non-Tender, Lungs Clear, No Accessory Muscle Use, No Respi ratory Distress, Normal Breath Sounds Cardiovascular: No Murmur, No Gallop, Regular Rate/Rhythm Breast Exam: Deferred Gastrointestinal: No Organomegaly, Non Tender, No Pulsatile Mass, Normal Bowel Sounds, Soft Genitalia: Deferred Pelvic: Deferred Rectal: Deferred Extremities: Leg edema, No calf tenderness, Pedal edema Musculoskeletal : Extremity Location: Back (No gross abnormalities with the packing on inspection. No midline tenderness. Localized right-sided paraspinal TTP.) Neurologic: Alert, No Motor Deficits, Normal Affect, Normal Mood, No Sensory Deficits Cerebellar Function: Normal Reflexes: NOT DONE Skin: Dry, Normal Color, Warm Lymphatic: NOT DONE Was a procedure done? Was a procedure done?: No Back Pain Differential Dx Differential Diagnosis: Musculoskeletal Pain, Strain, Other X-Ray, Labs, Meds, VS Vital Signs Date Time Temp Pulse Resp B/P (MAP) Pulse Ox O2 Delivery O2 Flow Rate FiO2 02/12/25 12:46 66 18 168/69 (102) 96 02/12/25 12:43 66 18 168/69 02/12/25 08:21 97.4 70 18 168/83 (111) 98 97.4 02/12/25 08:21 70 18 98 Room Air 02/12/25 05:45 98.2 74 18 171/87 (115) 98 98.2 02/12/25 05:38 73 Lab Test 02/12/25 08:23 02/12/25 08:00 Range/Units White Blood Count 6.2 4.4-10.8 10^3/uL Red Blood Count 4.23 4.0-5.20 10^6/uL Hemoglobin 13.5 12.2-16.2 g/dL Hematocrit 40.4 36.0-46.0 % Mean Corpuscular Volume 95.3 80.0-100.0 fL Mean Corpuscular Hemoglobin 31.8 28.0-32.0 pg Mean Corpuscular Hemoglobin Concent 33.4 32.0-36.0 g/dL Red Cell Distribution Width 14.1 11.8-14.3 % Platelet Count 149 140-450 10^3/uL Mean Platelet Volume 8.8 6.9-10.8 fL Neutrophils (%) (Auto) 52.3 37.0-80.0 % Lymphocytes (%) (Auto) 36.5 10.0-50.0 % Monocytes (%) (Auto) 10.1 0.0-12.0 % Eosinophils (%) (Auto) 0.6 0.0-7.0 % Basophils (%) (Auto) 0.5 0.0-2.0 % Neutrophils # (Auto) 3.2 1.6-8.6 10 ^3/uL Lymphocytes # (Auto) 2.3 0.4-5.4 10 ^3/uL Monocytes # (Auto) 0.6 0-1.3 10 ^3/uL Eosinophils # (Auto) 0 0-0.8 10 ^3/uL Basophils # (Auto) 0 0-0.2 10 ^3/uL Nucleated Red Blood Cells 0.1 % Sodium Level 139 136-145 mmol/L Potassium Level 3.6 3.5-5.1 mmol/L Chloride Level 100 98-107 mmol/L Carbon Dioxide Level 30 20-31 mmol/L Anion Gap 9 5-15 Blood Urea Nitrogen 13 9-23 mg/dL Creatinine 0.71 0.550-1.02 mg/dL Glomerular Filtration Rate Calc 85 >90 mL/min BUN/Creatinine Ratio 18.3 10.0-20.0 Serum Glucose 168 H 74-106 mg/dL Calcium Level 9.5 8.7-10.4 mg/dL B-Type Natriuretic Peptide 168.85 0-100 pg/mL Urine Color Light-yellow Yellow Urine Clarity Clear Clear Urine pH 6.0 5.0-9.0 Urine Specific [place] 1.016 1.001-1.035 Urine Protein 2+ H Negative Urine Ketones Negative Negative Urine Blood 1+ H Negative /uL Urine Nitrite Negative Negative Urine Bilirubin Negative Negative Urine Urobilinogen Normal Negative mg/dL Urine Leukocyte Esterase 2+ Negative /uL Urine RBC 9 0 - 4 /hpf Urine Microscopic WBC 33 H 0-5 /HPF Urine Squamous Epithelial Cells Few <5 /hpf Urine Bacteria Few H None Seen /hpf Urine Glucose Normal Normal mg/dL Current Medications Medications (Trade) Dose Ordered Sig/Magalys Route Start Time Stop Time Status Last Admin Ceftriaxone Sodium 50 ml @ 100 mls/hr ONCE ONCE IV 02/12/25 09:30 02/12/25 09:59 DC 02/12/25 09:47 Morphine Sulfate 2 mg ONCE ONCE IV 02/12/25 10:30 02/12/25 10:32 DC 02/12/25 12:43 PATIENT: HANNA MAC ACCT: [id number] UNIT: [id number] : 1945 LOC: ER ROOM / BED: / AGE / SEX: 79 / F ADM STATUS: REG ER SERVICE [id number] ORDERING PHYSICIAN: IMELDA GUERRERO NP PROCEDURE(s): CXRP - CHEST PORTABLE REASON: R/o pna chf ORDER NUMBER(s): [id number], ACCESSION NUMBER(s): [id number] INDICATION: R/o pna chf TECHNIQUE: Frontal view of the chest. COMPARISON: XY CHEST PORTABLE on DOS: 06/12/23, XY CHEST XRAY 1 VIEW on DOS: 03/11/23, CXRP on DOS: 06/22/21, CHEST PORTABLE on DOS: 06/22/21 FINDINGS: . The heart and mediastinal contours are grossly unremarkable. There is no evidence of pleural disease. The lungs are clear. The bony structures of the chest are intact without fracture. IMPRESSION: 1. No evidence of acute disease. ATED BY: ILANA DAN MD DICTATED DATE/TIME: 02/12/25824 SIGNED BY: ILANA DAN MD SIGNED DATE/TIME: 02/12/25824 [place] [address] Ph: [phone] DIAGNOSTIC IMAGING Diagnostic Imaging Report : [id number] Signed PATIENT: HANNA MAC ACCT: [id number] UNIT: [id number] : 1945 LOC: ER ROOM / BED: / AGE / SEX: 79 / F ADM STATUS: REG ER SERVICE ORDERING PHYSICIAN: IMELDA GUERRERO NP PROCEDURE(s): ABPLIV - CT AB PEL WITH IV CON ONLY REASON: right flank pain ORDER NUMBER(s): [id number], ACCESSION NUMBER(s): [id number] CT CT AB PEL WITH IV CON ONLY INDICATION: right flank pain EXAM DATE: 02/12/2025 10:01 AM COMPARISON: None RADIATION DOSE: CTDIvol: 26.06 mGy, DLP: 1381.16 mGy*cm PROCEDURE: Helical CT images were obtained of the abdomen and pelvis with IV contrast Sagittal and coronal reconstructions are provided. ORAL CONTRAST: None. ADDITIONAL IMAGES / REFORMATS: None All CT scans at this medical facility are performed using dose modulation techniques as appropriate to a performed exam including the following: Automated exposure control was utilized; adjustment of the MA and/or KV according to patient size; and use of iterative reconstruction technique. FINDINGS: LUNG BASE: Normal. LIVER: Normal. GALLBLADDER AND BILIARY TREE: Absent gallbladder with a dilated common bile duct to 1.7 cm in mildly dilated intrahepatic bile ducts. PANCREAS: Normal. SPLEEN: Normal. BOWEL: [id number] colonic diverticulosis. ADRENALS: Normal. KIDNEYS AND URETER: Nonobstructive bilateral kidney stones. BLADDER: Normal. REPRODUCTIVE ORGANS: Absent uterus LYMPH NODES:No lymphadenopathy. PERITONEUM: No ascites or free air. No other fluid collection. VESSELS: Scattered atherosclerotic calcifications are noted. RETROPERITONEUM: Normal. ABDOMINAL WALL: Normal. BONES: Scattered osseous degenerative changes are noted. IMPRESSION: No acute intraabdominal abnormality. Nonobstructive bilateral kidney stones. No hydronephrosis. ATED BY: TO MOLINA MD DICTATED DATE/TIME: 02/12/251031 SIGNED BY: TO MOLINA MD SIGNED DATE/TIME: 02/12/251031 X-Ray, Labs, Meds, VS Comment 79 year F presents with R flank pain. VSS, patient in NAD, afebrile. Exam as above. The patient's presentation is consistent with kidney stones. Labs reviewed UA reviewed CT abd/pelvis shows: No acute intraabdominal abnormality. Nonobstructive bilateral kidney stones. No hydronephrosis. Low suspicion for atypical appendicitis, torsion, acute cholecystitis, AAA, Aortic Dissection, Serious Bacterial Illness or other emergent intra-abdominal pathology given the patient is overall well appearing, afebrile, and with lab findings as above. Incidental UTI findings also noted on urinalysis The urinalysis confirms the diagnosis. In the ED, the patient was treated with Ceftriaxone for UTI. Patient was also given morphine x1 for her back pain. Patient also presents with bilateral leg swelling. No evidence of congestive heart failure. Labs do not suggest renal failure. No signs to suggest cellulitis, deep space infection or necrotizing fascitis. No signs to suggest compartment syndrome. BNP unremarkable No precipitating mechanism to suggest fracture, no visible deformity on exam with intact distal pulses and sensation Less likely DVT given absence of unilateral swelling and pain without overlying skin changes Etiology unclear, the patient reports that she is unable to ambulate at this time. Spoke with Dr. Mix regarding case and MD recommended PT evaluation and possible SNF for oral antibiotics and physical therapy. Patient declined and wishes to go home. Reports she feels much better in his able to ambulate without assistive devices. Reports she will follow up if symptoms do not improve. External notes reviewed. Test results and diagnostic imaging interpreted. All diagnostic findings, discharge care, education and instructions provided Follow-up with PCP in 2 to 3 days Patient verbalized understanding and agreed to treatment plan Vital signs stable, afebrile, no acute distress noted Patient ambulatory with strong steady gait Advised to return precautions for any new or worsening symptoms, return to ER immediately for re-evaluation Patient is aware that the purpose of this visit was for an acute medical emergency requiring emergent stabilization. Chronic conditions, including malignancies have not been ruled out. Patient is instructed to follow up with PCP as directed and discharge instructions for continued care and workup. If unable to arrange follow-up, patient is to return to the emergency department for reassessment. Patient (parent or legal guardian if applicable) was given verbal and written discharge instructions and acknowledges understanding. Time of 1ST Reevaluation: 08:21 Reevaluation 1ST: Unchanged Time of 2ND Reevaluation: 12:46 Reevaluation 2ND: Improved Patient Education/Counseling: Diagnosis, Treatment, Need For Follow Up Family Education/Counseling: Diagnosis, Treatment, Need For Follow Up Medical Screening: No EMC Exist At This Time Departure 1 Departure Time of Disposition: 12:29 Impression: Primary Impression: Kidney stone Additional Impressions: Flank pain UTI (urinary tract infection) Qualified Codes: N30.00 - Acute cystitis without hematuria Peripheral edema Intractable back pain Disposition: 01 HOME / SELF CARE / HOMELESS Condition: Fair e-Prescriptions Ciprofloxacin Hcl (Cipro) 500 Mg Tab 1 TAB PO BID, #14 TAB Prov: IMELDA GUERRERO NP 02/12/25 Tamsulosin Hcl (Flomax) 0.4 Mg Cap 1 CAP PO DAILY for 10 Days, #10 CAP 0 Refills Prov: IMELDA GUERRERO NP 02/12/25 Critical Care Note Critical Care Time?: No Stability Stability form required: No Heart Score Heart Score: Heart Score Response (Comments) Value History N/A 0 EKG N/A 0 Age N/A 0 Risk Factors N/A 0 Troponin N/A 0 Total 0 I personally scribed for IMELDA GUERRERO NP ([email or web address]) on 02/12/25 at 08:15. Electronically submitted by Johny Ponce ([email or web address]). I personally scribed for IMELDA GUERRERO NP ([email or web address]) on 02/12/25 at 08:20. Electronically submitted by Johny Ponce ([email or web address]). I personally scribed for IMELDA GUERRERO NP ([email or web address]) on 02/12/25 at 08:34. Electronically submitted by Johny Ponce ([email or web address]). IMELDA GUERRERO NP February 12, 2025 08:15
[2025-02-12 08:21] VITALS: TEMP 97.4
--- NOTE | 2025-02-12 08:27 | DVH ---
INDICATION: R/o pna chf TECHNIQUE: Frontal view of the chest. COMPARISON: XY CHEST PORTABLE on DOS: 06/12/23, XY CHEST XRAY 1 VIEW on DOS: 03/11/23, CXRP on DOS: 06/02 11/21, CHEST PORTABLE on DOS: 06/22/21 FINDINGS: . The heart and mediastinal contours are grossly unremarkable. There is no evidence of pleural disea se. The lungs are clear. The bony structures of the chest are intact without fracture. IMPRESSION: 1. No evidence of acute disease.
[2025-02-12 08:46] LABS: Basophils # (auto) 0 10 ^3/uL (0-0.2); Basophils % (auto) 0.5 % (0.0-2.0); Eosinophils # (auto) 0 10 ^3/uL (0-0.8); Eosinophils % (auto) 0.6 % (0.0-7.0); Hematocrit 40.4 % (36.0-46.0); Hemoglobin 13.5 g/dL (12.2-16.2); Lymphocytes # (auto) 2.3 10 ^3/uL (0.4-5.4); Lymphocytes % (auto) 36.5 % (10.0-50.0); Mean Corpuscular Hemoglobin 31.8 pg (28.0-32.0); Mean Corpuscular Hgb Conc. 33.4 g/dL (32.0-36.0); Mean Corpuscular Volume 95.3 fL (80.0-100.0); Monocytes # (auto) 0.6 10 ^3/uL (0-1.3); Monocytes % (auto) 10.1 % (0.0-12.0); Neutrophils # (auto) 3.2 10 ^3/uL (1.6-8.6); Neutrophils % (auto) 52.3 % (37.0-80.0); Nucleated Red Blood Cells % 0.1 %; Platelet Count (auto) 149 10^3/uL (140-450); Red Blood Cells 4.23 10^6/uL (4.0-5.20); Red Cell Distribution Width 14.1 % (11.8-14.3); White Blood Cell 6.2 10^3/uL (4.4-10.8)
[2025-02-12 08:50] LABS: Chloride 100 mmol/L (98-107); Potassium 3.6 mmol/L (3.5-5.1); Sodium 139 mmol/L (136-145)
[2025-02-12 08:51] LABS: Anion Gap 9 (5-15); Calcium 9.5 mg/dL (8.7-10.4); Carbon Dioxide 30 mmol/L (20-31)
[2025-02-12 08:56] LABS: BUN/Creatinine Ratio 18.3 (10.0-20.0); Blood Urea Nitrogen 13 mg/dL (9-23)
[2025-02-12 08:59] LABS: Glucose 168 mg/dL (74-106)
[2025-02-12 09:04] LABS: Urine Bacteria FEW /hpf (None Seen); Urine Blood 1+ /uL (Negative); Urine Clarity Clear (Clear); Urine Color Light-Yellow (Yellow); Urine Protein, UAD 2+ (Negative); Urine Specific Gravity 1.016 (1.001-1.035); Urine Squamous Epithelial Cell FEW /hpf (<5); Urine Urobilinogen Normal (Negative); Urine WBC 33 /HPF (0-5)
[2025-02-12] MEDS: cefTRIAXone 1GM/50ML D5W 50 ML IV ONE (09:47)
--- NOTE | 2025-02-12 09:54 | ECG ---
[facility] Test Date: 2025-02-12 Test Time: 05:16:58 Pat Name: HANNA MAC Department: ED Room: Gender: F Residential Finish Carpenter: JIMENA : 1945 Requested By: EMERGENCY EMERGENCY Order Number: [id number] Reading MD: Gabo Martinez Measurements Intervals [place] Rate: 73 P: 50 NH: 176 QRS: 63 QRSD: 107 T: 24 QT: 449 QTc: 495 Interpretive Statements Sinus rhythm Borderline prolonged QT interval Electronically Signed On 02-12-2025 13:16:50 PDT by Gabo Martinez Please click the below link to view image of tracing.
--- NOTE | 2025-02-12 10:34 | DVH ---
CT CT AB PEL WITH IV CON ONLY INDICATION: right flank pain EXAM DATE: 02/12/2025 10:01 AM COMPARISON: None RADIATION DOSE: CTDIvol: 26.06 mGy, DLP: 1381.16 mGy*cm PROCEDURE: Helical CT images were obtained of the abdomen and pelvis with IV contrast Sagittal and co anel reconstructions are provided. ORAL CONTRAST: None. ADDITIONAL IMAGES / REFORMATS: None All CT s cans at this medical facility are performed using dose modulation techniques as appropriate to a perf ormed exam including the following: Automated exposure control was utilized; adjustment of the MA and /or KV according to patient size; and use of iterative reconstruction technique. FINDINGS: LUNG BASE: Normal. LIVER: Normal. GALLBLADDER AND BILIARY TREE: Absent gallbladder with a dilated common bile duct to 1.7 cm in mildly dilated intrahepatic bile ducts. PANCREAS: Normal. SPLEEN: Normal. BOWEL: [id number] colonic diverticulosis. ADRENALS: Normal. KIDNEYS AND URETER: Nonobstructive bilateral kidney stones. BLADDER: Normal. REPRODUCTIVE ORGANS: Absent uterus LYMPH NODES:No lymphadenopathy. PERITONEUM: No ascites or free air. No other fluid collection. VESSELS: Scattered atherosclerotic calcifications are noted. RETROPERITONEUM: Normal. ABDOMINAL WALL: Normal. BONES: Scattered osseous degenerative changes are noted. IMPRESSION: No acute intraabdominal abnormality. Nonobstructive bilateral kidney stones. No hydronephrosis.
[2025-02-12] MEDS ORDERED: TAMS-35 PO (12:29)
[2025-02-12] MEDS ORDERED: CIPR-173 PO (12:29)
[2025-02-12] MEDS: MORPHINE SULFATE INJ 2 MG/ml SYRG IV ONE (12:43)
[2025-02-12 13:22] VITALS: BP 168/72; PULSE 64; RESP 16; O2SAT 97
[2025-02-12] MEDS ORDERED: ALPRAZolam 0.25 MG TAB PO PRN (13:45)
[2025-02-12] MEDS ORDERED: ACETAMINOPHEN 500 MG TAB or CAP PO SCH (13:45)
--- NOTE | 2025-02-12 13:47 | DVHINCON2 ---
Date of service: February 12, 2025 Reason for Consultation Flank pain and weakness History of Present Illness A 79 year old female with PMHx Chronic Back Pain, DM insulin dependent, Arthritis, HTN, CHF, COPD presents to the ED c/o atraumatic back/flank pain onset 3 days. Patient states that her pain is localized to her right flank/back area, nonradiating, describes as sharp, and rates her pain a 10/10. Patient mentions that she did not fall and that she suffers from chronic back pain. Patient reports that the pain is made worse with lateral movements. Patient reports that she took a Tylenol with Codeine at home around 04:00 this morning and states that it provided some relief. Denies fever, SOB, chest pain, abdominal pain, nausea, vomiting, diarrhea, headache, dizziness, vision changes, or numbness/tingling of extremities. No other symptoms or modifying factors reported at this time. Patient is alert and oriented x4 and has a stable gait. Past Medical History Arthritis, CHF, DM, HTN, PE Past Surgical History Appendectomy, Cholecystectomy, Hernia Repair, Hysterectomy Family History: Atherosclerosis G8 MOTHER G8 FATHER Clotting disorder G8 MOTHER Diabetes mellitus G8 FATHER Hypertension G8 MOTHER G8 FATHER Ischemic heart disease G8 MOTHER G8 FATHER Allergies: Coded Allergies: Hydrocodone (Verified Allergy, Unknown, 03/11/23) Metformin (Verified Allergy, Unknown, 03/11/23) Sulfa Antibiotics (Verified Allergy, Unknown, 03/11/23) Home Meds Active Scripts Ciprofloxacin Hcl (Cipro) 500 Mg Tab, 1 TAB PO BID, #14 TAB Prov:IMELDA GUERRERO NP 02/12/25 Tamsulosin Hcl (Flomax) 0.4 Mg Cap, 1 CAP PO DAILY for 10 Days, #10 CAP 0 Refills Prov:IMELDA GUERRERO NP 02/12/25 Metoprolol Tartrate (LOPRESSOR TABLET) 50 Mg Tb, 1 TAB PO BID, #60 TAB 5 Refills Prov:GARFIELD TAI MD 03/12/23 Reported Medications Acetaminophen (Tylenol Extra Strength) 500 Mg Tab, 500 MG PO PRN, #2 TAB 06/13/23 Loperamide HCl (Imodium A-D) 1 Mg/7.5 Ml Liq, 1 MG PO DAILY, LIQ 06/13/23 Warfarin Sodium (Warfarin Sodium) 3 Mg Tab, 1.5 MG PO Q SUNDAY, TAB 06/13/23 Nifedipine (Nifedipine Er) 30 Mg Tab, 1 TAB PO DAILY, #90 TAB 1 Refill 06/13/23 Losartan Potassium & Hydrochlo (Losartan Potassium/Hydroc) 1 Tab Tab, 1 TAB PO DAILY@DINNER, #30 TAB 5 Refills 06/13/23 Alprazolam (Alprazolam) 0.25 Mg Tab, 0.25 MG PO BIDPRN PRN for ANXIETY, TAB 06/13/23 Simvastatin (Simvastatin) 40 Mg Tab, 40 MG PO HS 06/21/21 Potassium Chloride (K-Tabs) 10 Meq Tab, 10 MEQ PO DAILY 06/21/21 Warfarin Sodium (Warfarin Sodium) 3 Mg Tab, 3 MG PO QPM 06/21/21 Insulin Glargine (Lantus Solostar) 100 Unit/Ml Inj, 75 UNIT SC HS 06/21/21 Current Medications Current Medications Medications (Trade) Dose Ordered Sig/Magalys Route PRN Reason Start Time Stop Time Status Last Admin Acetaminophen (Tylenol Tablet Or Capsule) 500 mg PRN PO 02/12/25 13:45 UNV Alprazolam (Xanax Tablet) 0.25 mg BIDPRN PRN PO ANXIETY 02/12/25 13:45 UNV Ciprofloxacin (Cipro Tablet) 500 mg BID PO 02/12/25 22:00 UNV Metoprolol Tartrate (Lopressor Tablet) 50 mg BID PO 02/12/25 22:00 UNV Nifedipine (Procardia Xl (Time-Release)) 30 mg DAILY PO 02/13/25 10:00 UNV Potassium Chloride (Klor-Con Tablet) 10 meq DAILY PO 02/13/25 10:00 UNV Insulin Glargine (Lantus) 25 units HS SC 02/12/25 22:00 UNV Losartan Potassium (Cozaar Tablet) 25 mg DAILY PO 02/13/25 10:00 UNV Atorvastatin Calcium (Lipitor) 20 mg HS PO 02/12/25 22:00 UNV Review of Systems Other review of systems reviewed normal Vital Signs Vital Signs Date Time Temp Pulse Resp B/P (MAP) Pulse Ox O2 Delivery O2 Flow Rate FiO2 02/12/25 13:22 64 16 168/72 (104) 97 02/12/25 08:21 97.4 97.4 02/12/25 08:21 Room Air Labs/Diagnostic Data Labs Test 02/12/25 08:23 02/12/25 08:00 Range/Units White Blood Count 6.2 4.4-10.8 10^3/uL Red Blood Count 4.23 4.0-5.20 10^6/uL Hemoglobin 13.5 12.2-16.2 g/dL Hematocrit 40.4 36.0-46.0 % Mean Corpuscular Volume 95.3 80.0-100.0 fL Mean Corpuscular Hemoglobin 31.8 28.0-32.0 pg Mean Corpuscular Hemoglobin Concent 33.4 32.0-36.0 g/dL Red Cell Distribution Width 14.1 11.8-14.3 % Platelet Count 149 140-450 10^3/uL Mean Platelet Volume 8.8 6.9-10.8 fL Neutrophils (%) (Auto) 52.3 37.0-80.0 % Lymphocytes (%) (Auto) 36.5 10.0-50.0 % Monocytes (%) (Auto) 10.1 0.0-12.0 % Eosinophils (%) (Auto) 0.6 0.0-7.0 % Basophils (%) (Auto) 0.5 0.0-2.0 % Neutrophils # (Auto) 3.2 1.6-8.6 10 ^3/uL Lymphocytes # (Auto) 2.3 0.4-5.4 10 ^3/uL Monocytes # (Auto) 0.6 0-1.3 10 ^3/uL Eosinophils # (Auto) 0 0-0.8 10 ^3/uL Basophils # (Auto) 0 0-0.2 10 ^3/uL Nucleated Red Blood Cells 0.1 % Sodium Level 139 136-145 mmol/L Potassium Level 3.6 3.5-5.1 mmol/L Chloride Level 100 98-107 mmol/L Carbon Dioxide Level 30 20-31 mmol/L Anion Gap 9 5-15 Blood Urea Nitrogen 13 9-23 mg/dL Creatinine 0.71 0.550-1.02 mg/dL Glomerular Filtration Rate Calc 85 >90 mL/min BUN/Creatinine Ratio 18.3 10.0-20.0 Serum Glucose 168 H 74-106 mg/dL Calcium Level 9.5 8.7-10.4 mg/dL B-Type Natriuretic Peptide 168.85 0-100 pg/mL Urine Color Light-yellow Yellow Urine Clarity Clear Clear Urine pH 6.0 5.0-9.0 Urine Specific [place] 1.016 1.001-1.035 Urine Protein 2+ H Negative Urine Ketones Negative Negative Urine Blood 1+ H Negative /uL Urine Nitrite Negative Negative Urine Bilirubin Negative Negative Urine Urobilinogen Normal Negative mg/dL Urine Leukocyte Esterase 2+ Negative /uL Urine RBC 9 0 - 4 /hpf Urine Microscopic WBC 33 H 0-5 /HPF Urine Squamous Epithelial Cells Few <5 /hpf Urine Bacteria Few H None Seen /hpf Urine Glucose Normal Normal mg/dL Assessment Generalized weakness Acute urinary tract infect Chronic back pains and Hypertension Patient's chart is reviewed and discussed with the nurse practitioner. Essentially patient's workup in the ER is normal except for mild urinary tract infection. Patient given her age with the weakness and UTI offered to go to [facility] facility for strengthening and exercises. However she declined and of to go home. Therefore I have talked to [facility] on-call rn field case manager who will be arranging home safety evaluation as well as home health for physical therapy and walker. Patient we will be follow up with her primary care physician or come back to [facility] urgent Care should she have any new or recurrent or worsening symptoms. Problems(with codes): (1) UTI (urinary tract infection) (2) Intractable back pain Plan discussed with: Other JOEL FAUSTIN MD February 12, 2025 13:47
[2025-02-12] MEDS ORDERED: INSULIN LANTUS (GLARGINE) 1 /0.01ml (100units/ml) SC SCH (22:00)
[2025-02-12] MEDS ORDERED: ATORVASTATIN 20 MG TAB PO SCH (22:00)
[2025-02-12] MEDS ORDERED: METOPROLOL TARTRATE 50 MG TAB PO SCH (22:00)
[2025-02-12] MEDS ORDERED: CIPROFLOXACIN HCL 500 MG TAB PO SCH (22:00)
[2025-02-13] MEDS ORDERED: NIFEdipine ER 30 MG TAB PO SCH (10:00)
[2025-02-13] MEDS ORDERED: LOSARTAN POTASSIUM 25 MG TAB PO SCH (10:00)
[2025-02-13] MEDS ORDERED: POTASSIUM CHL 10 Meq TABLET PO SCH (10:00)
== END 2025-02-12 13:38 | disposition home or self-care (01) ==
LOC: ER 05:38
DX: N20.0 Calculus of kidney (principal); N39.0 Urinary tract infection, site not specified; I11.0 Hypertensive heart disease with heart failure; I50.9 Heart failure, unspecified; E11.9 Type 2 diabetes mellitus without complications; J44.9 Chronic obstructive pulmonary disease, unspecified; M19.90 Unspecified osteoarthritis, unspecified site; Z79.899 Other long term (current) drug therapy; Z90.49 Acquired absence of other specified parts of digestive tract; Z90.710 Acquired absence of both cervix and uterus; Z98.890 Other specified postprocedural states; Z88.2 Allergy status to sulfonamides; Z88.5 Allergy status to narcotic agent; Z88.8 Allergy status to other drugs, medicaments and biological substances
CPT/HCPCS: 36415; 71045; 74177; 80048; 81001; 83880; 85025; 93005; 96365; 96375; 99285; J0696; J2270; Q9967

== ENCOUNTER 2025-07-24 16:04 | Emergency (ER) | payer OTHER ==
[~2025-07-24] VITALS: Ht 162.6 cm; Wt 100.0 kg
[~2025-07-24 16:04] MED LIST changes: +CIPR-173 PO; +TAMS-35 PO
[2025-07-24] MEDS: ONDANSETRON ODT 4 MG TAB PO ONE (16:26)
--- NOTE | 2025-07-24 16:26 | ED.PDOC ---
History of Present Illness HPI Comments This patient is a severely morbidly obese 80 y/o F who was BIBA for c/c of shortness of breath and bilateral lower leg swelling, with associated nausea. Significant history of AFib, COPD, CHF, DM, HTN, and PE. Patient is on warfarin. No reported chest pain, congestion, fever, chills, or further acute symptoms. Patient was hypertensive at arrival. Chief Complaint: Shortness of Breath Time Seen by MD: 16:10 Primary Care Provider: YAHAIRA Reviewed Notes: Nurses Notes, Bariatric Nurse Notes, Medications, Allergies Allergies: Coded Allergies: Hydrocodone (Verified Allergy, Unknown, 03/11/23) Metformin (Verified Allergy, Unknown, 03/11/23) Sulfa Antibiotics (Verified Allergy, Unknown, 03/11/23) Home Meds Active Scripts Budesonide-Formoterol Fumarate (Budesonide/Formoterol Fum 80-4.5 Mcg/Act) 1 Aer Aer, 2 AER IN BID, #1 AER Prov:VICTOR MANUEL BENTLEY PAC 07/24/25 Ciprofloxacin Hcl (Cipro) 500 Mg Tab, 1 TAB PO BID, #14 TAB Prov:IMELDA GUERRERO PATIENT SCHEDULING COORDINATOR 02/12/25 Tamsulosin Hcl (Flomax) 0.4 Mg Cap, 1 CAP PO DAILY for 10 Days, #10 CAP 0 Refills Prov:IMELDA GUERRERO PATIENT SCHEDULING COORDINATOR 02/12/25 Metoprolol Tartrate (LOPRESSOR TABLET) 50 Mg Tb, 1 TAB PO BID, #60 TAB 5 Refills Prov:GARFIELD TAI MD 03/12/23 Reported Medications Acetaminophen (Tylenol Extra Strength) 500 Mg Tab, 500 MG PO PRN, #2 TAB 06/13/23 Loperamide HCl (Imodium A-D) 1 Mg/7.5 Ml Liq, 1 MG PO DAILY, LIQ 06/13/23 Warfarin Sodium (Warfarin Sodium) 3 Mg Tab, 1.5 MG PO Q SUNDAY, TAB 06/13/23 Nifedipine (Nifedipine Er) 30 Mg Tab, 1 TAB PO DAILY, #90 TAB 1 Refill 06/13/23 Losartan Potassium & Hydrochlo (Losartan Potassium/Hydroc) 1 Tab Tab, 1 TAB PO DAILY@DINNER, #30 TAB 5 Refills 06/13/23 Alprazolam (Alprazolam) 0.25 Mg Tab, 0.25 MG PO BIDPRN PRN for ANXIETY, TAB 06/13/23 Simvastatin (Simvastatin) 40 Mg Tab, 40 MG PO HS 06/21/21 Potassium Chloride (K-Tabs) 10 Meq Tab, 10 MEQ PO DAILY 06/21/21 Warfarin Sodium (Warfarin Sodium) 3 Mg Tab, 3 MG PO QPM 06/21/21 Insulin Glargine (Lantus Solostar) 100 Unit/Ml Inj, 75 UNIT SC HS 06/21/21 Information Source: Patient, Emergency Med Personnel Mode of Arrival: EMS Severity: Moderate Timing: Hours Duration: Since onset Prehospital treatment: 12 Lead EKG, Accucheck, Crozer Operator Past Medical History PAST MEDICAL HISTORY: AFIB, Arthritis, CHF, COPD, DM, HTN, PE Surgical History: Appendectomy, Cholecystectomy, Hernia Repair, Hysterectomy [employer] OFF[employer] History: Denies all [employer]IOR OFF[employer] Hx Family History Family History: Family hx of DM, Family hx of heart liborio Family History (Other): blood clots Social History Smoker: Non-Smoker Alcohol: Occasionally Drugs: Denies Drug Use Lives In: Home Constitutional: denies: chills, diaphoresis, fatigue, fever, malaise, sweats, weakness, others EENTM: denies: blurred vision, double vision, ear bleeding, ear discharge, ear drainage, ear pain, ear ringing, eye pain, eye redness, hearing loss, mouth pain, mouth swelling, nasal discharge, nose bleeding, nose congestion, nose pain, photophobia, tearing, throat pain, throat swelling, voice changes, others Respiratory: reports: shortness of breath; denies: cough, hemoptysis, orthopnea, SOB at rest, SOB with excertion, stridor, wheezing, others Cardiovascular: denies: chest pain, dizzy spells, diaphoresis, Dyspnea on exertion, edema, irregular heart beat, left arm pain, lightheadedness, palpitations, PND, syncope, others Gastrointestinal: reports: nausea; denies: abdomen distended, abdominal pain, blood streaked bowels, constipated, diarrhea, dysphagia, difficulty swallowing, hematemesis, melena, poor appetite, poor fluid intake, rectal bleeding, rectal pain, vomiting, others Genitourinary: denies: abnormal vagina bleeding, burning, dyspareunia, dysuria, flank pain, frequency, hematuria, incontinence, pain, , vagina discharge, urgency, others Neurological: denies: dizziness, fainting, headache, left sided numbness, left sided weakness, numbness, paresthesia, pre-existing deficit, right sided numbness, right sided weakness, seizure, speech problems, tingling, tremors, weakness, others Musculoskeletal: reports: others (Bilateral lower extremity edema); denies: back pain, gout, joint pain, joint swelling, muscle pain, muscle stiffness, neck pain Integumetry: denies: bruises, change in color, change in hair/nails, dryness, laceration, lesions, lumps, rash, wounds, others Allergic/Immunocompromised: denies: Difficulty Healing, Frequent Infections, Hives, Itching, others Hematologic/Lymphatic: denies: anemia, blood clots, easy bleeding, easy bruising, swollen glands, others Endocrine: denies: excessive hunger, excessive sweating, excessive thirst, excessive urination, flushing, intolerance to cold, intolerance to heat, unexplained weight gain, unexplained weight loss, others Psychiatric: denies: anxiety, bipolar disorder, depression, hopeless, panic disorder, schizophrenia, sleepless, suicidal, others All Other Systems: Reviewed and Negative (Comprehensive systems review obtained and negative except for what is stated in the HPI.) Physical Exam General Appearance: Mild Distress (Patient was only in mild discomfort at time of evaluation.), Obese HEENT: Normal ENT Inspection, Pharynx Normal, TMs Normal Neck: Full Range of Motion, Non-Tender, Normal, Normal Inspection Respiratory: Other (Mild patchy rhonchi appreciated in right middle lobe, right upper lobe and left upper lobe. No accessory muscle use. Patient was on O2 via nasal cannula at 2 L.) Cardiovascular: No Edema, No JVD, No Murmur, No Gallop, Normal Peripheral Pulses, Regular Rate/Rhythm Breast Exam: Deferred Gastrointestinal: No Organomegaly, Non Tender, No Pulsatile Mass, Normal Bowel Sounds, Soft Genitalia: Deferred Pelvic: Deferred Rectal: Deferred Extremities: Leg edema, Pedal edema Neurologic: Alert Cerebellar Function: NOT DONE Reflexes: NOT DONE Skin: Dry, Normal Color, Warm Lymphatic: No Adenopathy Was a procedure done? Was a procedure done?: No Differential Dx Considerations may include: CHF exacerbation, AR, PE, ACS, CAD, URI, PNA, among others X-Ray, Labs, Meds, VS Vital Signs Date Time Temp Pulse Resp B/P (MAP) Pulse Ox O2 Delivery O2 Flow Rate FiO2 07/24/25 19:13 153/56 07/24/25 19:13 71 16 153/56 (88) 98 07/24/25 18:17 177/59 07/24/25 17:57 73 20 99 Nasal Cannula* 2 28 07/24/25 17:57 99.8 73 20 177/59 (98) 99 99.8 07/24/25 16:31 98.7 78 20 183/71 95 98.7 07/24/25 16:04 77 Lab Test 07/24/25 19:30 07/24/25 17:58 07/24/25 16:55 07/24/25 16:26 Range/Units Lactic Acid Level 1.8 2.1 *H 0.4-2.0 mmol/L Troponin I High Sensitivity 32 31 25 </=34 ng/L White Blood Count 7.8 4.4-10.8 10^3/uL Red Blood Count 4.15 4.0-5.20 10^6/uL Hemoglobin 13.4 12.2-16.2 g/dL Hematocrit 39.6 36.0-46.0 % Mean Corpuscular Volume 95.4 80.0-100.0 fL Mean Corpuscular Hemoglobin 32.2 H 28.0-32.0 pg Mean Corpuscular Hemoglobin Concent 33.7 32.0-36.0 g/dL Red Cell Distribution Width 14.0 11.8-14.3 % Platelet Count 140 140-450 10^3/uL Mean Platelet Volume 9.2 6.9-10.8 fL Neutrophils (%) (Auto) 77.1 37.0-80.0 % Lymphocytes (%) (Auto) 15.4 10.0-50.0 % Monocytes (%) (Auto) 6.9 0.0-12.0 % Eosinophils (%) (Auto) 0.2 0.0-7.0 % Basophils (%) (Auto) 0.4 0.0-2.0 % Neutrophils # (Auto) 6.0 1.6-8.6 10 ^3/uL Lymphocytes # (Auto) 1.2 0.4-5.4 10 ^3/uL Monocytes # (Auto) 0.5 0-1.3 10 ^3/uL Eosinophils # (Auto) 0 0-0.8 10 ^3/uL Basophils # (Auto) 0 0-0.2 10 ^3/uL Nucleated Red Blood Cells 0.1 % Sodium Level 141 136-145 mmol/L Potassium Level 3.5 3.5-5.1 mmol/L Chloride Level 97 L 98-107 mmol/L Carbon Dioxide Level 35 H 20-31 mmol/L Anion Gap 9 5-15 Blood Urea Nitrogen 16 9-23 mg/dL Creatinine 0.80 0.550-1.02 mg/dL Glomerular Filtration Rate Calc 74 >90 mL/min BUN/Creatinine Ratio 20.0 10.0-20.0 Serum Glucose 115 H 74-106 mg/dL Calcium Level 10.3 8.7-10.4 mg/dL B-Type Natriuretic Peptide 232.03 0-100 pg/mL Lipase 26 12-53 U/L Urine Color Light-yellow Yellow Urine Clarity Clear Clear Urine pH 5.5 5.0-9.0 Urine Specific [place] 1.014 1.001-1.035 Urine Protein 1+ H Negative Urine Ketones Negative Negative Urine Blood 1+ H Negative /uL Urine Nitrite Negative Negative Urine Bilirubin Negative Negative Urine Urobilinogen Normal Negative mg/dL Urine Leukocyte Esterase Negative Negative /uL Urine RBC 7 0 - 4 /hpf Urine Microscopic WBC 3 0-5 /HPF Urine Squamous Epithelial Cells Few <5 /hpf Urine Bacteria Few H None Seen /hpf Urine Mucus Few None Seen Urine Glucose Normal Normal mg/dL Current Medications Medications (Trade) Dose Ordered Sig/Magalys Route Start Time Stop Time Status Last Admin Clonidine HCl (Catapres Tablet) 0.1 mg ONCE ONCE PO 07/24/25 18:15 07/24/25 18:16 DC 07/24/25 18:17 X-Ray, Labs, Meds, VS Comment All studies performed the ED were evaluated by me personally. Serum studies and urinalysis were unremarkable for any systemic concerns. Chest x-ray was unremarkable for any consolidation. Some pulmonary markings noted that were indicative of COPD. EKG was unremarkable for any acute coronary event. Patient's nausea was managed and patient states that she initially felt shortness a breath but did not use her oxygen at home. Patient states good improvement of symptoms feels comfortable being discharged. Advised patient that she needs to follow up with the primary care provider for continued evaluation and management of her multiple comorbidities including evaluation of her medication management of her CHF and management of her COPD. Time of 1ST Reevaluation: 20:38 Reevaluation 1ST: Improved Consultation: PCP Patient Education/Counseling: Diagnosis, Treatment, Other (need for admission ) Family Education/Counseling: Diagnosis, Treatment SEPSIS Sepsis Screen Recent Procedure: No On Antibiotic Therapy: No Respiratory Rate >20: No Heart Rate >90: No Temp<36 C (96.8 F) or >38.3 C: No SBP <90 or MAP <65 mmHG: No New Acute Mental Status Change: No Is the patient on CPAP, BIPAP,: No Physician Orders Continuous Ekg Monitoring 08,12,16,20,00,04 (07/24/25 16:09) Chest Portable (07/24/25 16:09) Vital Signs Date Time Temp Pulse Resp B/P (MAP) Pulse Ox O2 Delivery O2 Flow Rate FiO2 07/24/25 19:13 153/56 07/24/25 19:13 71 16 153/56 (88) 98 07/24/25 18:17 177/59 07/24/25 17:57 73 20 99 Nasal Cannula* 2 28 07/24/25 17:57 99.8 73 20 177/59 (98) 99 99.8 07/24/25 16:31 98.7 78 20 183/71 95 98.7 07/24/25 16:04 77 Laboratory Tests Test 07/24/25 16:55 07/24/25 19:30 Lactic Acid Level 2.1 mmol/L (0.4-2.0) *H 1.8 mmol/L (0.4-2.0) White Blood Count 7.8 10^3/uL (4.4-10.8) Medications Medications Dose Ordered Sig/Magalys Route Start Time Stop Time Status Last Admin Dose Admin Clonidine HCl 0.1 mg ONCE ONCE PO 07/24/25 18:15 07/24/25 18:16 DC 07/24/25 18:17 Departure 1 Departure Time of Disposition: 20:39 Impression: Primary Impression: COPD exacerbation Additional Impression: Peripheral edema Disposition: 01 HOME / SELF CARE / HOMELESS Condition: Stable Additional Instructions: Advised patient continue follow up with the primary care provider for evaluation of her COPD and CHF concerns. Advise utilizing medication as directed. e-Prescriptions Ondansetron Odt 4MG Tab (ZOFRAN PO) 4 Mg Tb 4 MG PO Q6HP PRN, #15 TAB ODT TAB-DISSOLVE IN MOUTH, THEN SWALLOW Prov: VICTOR MANUEL BENTLEY PAC 07/24/25 Budesonide-Formoterol Fumarate (Budesonide/Formoterol Fum 80-4.5 Mcg/Act) 1 Aer Aer 2 AER IN BID, #1 AER Prov: VICTOR MANUEL BENTLEY PAC 07/24/25 Discharged With: Self, Spouse Critical Care Note Critical Care Time?: No Stability Stability form required: No Heart Score Heart Score: Heart Score Response (Comments) Value History N/A 0 EKG N/A 0 Age N/A 0 Risk Factors N/A 0 Troponin N/A 0 Total 0 I personally scribed for VICTOR MANUEL BENTLEY PAC ([email or web address]) on 07/24/25 at 16:26. Electronically submitted by Stephen Arndt [email or web address]). VICTOR MANUEL BENTLEY PAC Jul 24, 2025 16:26
--- NOTE | 2025-07-24 16:52 | DVH ---
CHEST RADIOGRAPH Indication: Shortness of breath Technique: Single frontal view of the chest was obtained COMPARISON: XR CHEST 2 VIEW on DOS: 05/11/25, XY CHEST PORTABLE on DOS: 02/12/25, XR CHEST 2 VIEW on DO S: 11/25/24, XY CHEST PORTABLE on DOS: 06/12/23, XY CHEST XRAY 1 VIEW on DOS: 03/11/23 FINDINGS: Lines and Tubes: None Lungs: Increased interstitial prominence. This may represent pulmonary vascular congestion and/or vir al pneumonia. Pleura: No effusion.No pneumothorax. Cardiomediastinal contours: Unremarkable Bones: Unremarkable IMPRESSION: Increased interstitial prominence. This may represent pulmonary vascular congestion and/or viral pneumonia.
[2025-07-24 17:11] LABS: Urine Protein, UAD 1+ (Negative)
[2025-07-24 17:29] LABS: Hematocrit 39.6 % (36.0-46.0); Hemoglobin 13.4 g/dL (12.2-16.2); Mean Corpuscular Hemoglobin 32.2 pg (28.0-32.0); Mean Corpuscular Volume 95.4 fL (80.0-100.0); Nucleated Red Blood Cells % 0.1 %
[2025-07-24 17:42] LABS: Potassium 3.5 mmol/L (3.5-5.1); Sodium 141 mmol/L (136-145)
[2025-07-24 17:43] LABS: Anion Gap 9 (5-15); Calcium 10.3 mg/dL (8.7-10.4)
[2025-07-24 17:44] LABS: Carbon Dioxide 35 mmol/L (20-31); Chloride 97 mmol/L (98-107)
[2025-07-24 17:48] LABS: BUN/Creatinine Ratio 20.0 (10.0-20.0); Blood Urea Nitrogen 16 mg/dL (9-23); Glucose 115 mg/dL (74-106); Lipase 26 U/L (12-53)
[2025-07-24 17:57] VITALS: PULSE 73; RESP 20; TEMP 99.8; O2SAT 99
[2025-07-24 18:06] LABS: Lactic Acid w/Reflex 2.1 mmol/L (0.4-2.0)
--- NOTE | 2025-07-24 18:14 | ECG ---
[facility] Test Date: 2025-07-24 Test Time: 16:04:08 Pat Name: HANNA MAC Department: [facility] ED Patient ID: [facility]-[id number] Room: Gender: F Hall Porter: ADORE : 1945 Requested By: VICTOR MANUEL BENTLEY Order Number: [id number] Reading MD: Gabo Martinez Measurements Intervals [place] Rate: 77 P: 66 LA: 179 QRS: 104 QRSD: 97 T: 41 QT: 408 QTc: 462 Interpretive Statements Sinus rhythm Right axis deviation Borderline repolarization abnormality Electronically Signed On 07-27-2025 15:00:01 PDT by Gabo Martinez Please click the below link to view image of tracing.
[2025-07-24 19:13] VITALS: BP 153/56; PULSE 71; RESP 16; O2SAT 98
[2025-07-24] MEDS ORDERED: BUDE1AER5 IN (20:42)
[2025-07-24] MEDS ORDERED: ZOFR4T PO (21:04)
== END 2025-07-24 21:14 | disposition home or self-care (01) ==
LOC: ER 16:04 → EDBD 16:04 → ER 21:14
DX: J44.1 Chronic obstructive pulmonary disease with (acute) exacerbation (principal); I11.0 Hypertensive heart disease with heart failure; I50.9 Heart failure, unspecified; E11.9 Type 2 diabetes mellitus without complications; I48.91 Unspecified atrial fibrillation; M19.90 Unspecified osteoarthritis, unspecified site; Z79.899 Other long term (current) drug therapy; Z90.49 Acquired absence of other specified parts of digestive tract; Z90.710 Acquired absence of both cervix and uterus; Z98.890 Other specified postprocedural states; Z88.2 Allergy status to sulfonamides; Z88.5 Allergy status to narcotic agent
CPT/HCPCS: 36415; 71045; 80048; 81001; 83605; 83690; 83880; 84484; 85025; 93005